=== PATIENT | male | born 1985 | race Caucasian/White ===

== ENCOUNTER 2020-01-11 09:37 | Emergency (ER) | payer MEDICAID ==
[~2020-01-11] VITALS: Ht 167.6 cm; Wt 79.5 kg
[2020-01-11 09:39] VITALS: Ht 167.6 cm; Wt 79.5 kg
[2020-01-11] MEDS ORDERED: PROZAC20 MG PO (09:42)
[2020-01-11 10:06] LABS: BASOPHILS 0.2 % (0-2); EOSINOPHILS 0 % (0-7); IMMATURE GRANULOCYTES 0.5 % (0-5); MCH 33.7 pg (26.0-34.0); MCHC 36.4 g/dL (31.0-37.0); MCV 92.6 fL (80.0-100.0); MEAN PLATELET VOLUME 8.8 fL (7.4-10.4); MONOCYTES 6.2 % (2-11); NEUTROPHILS 85.1 % (40-80); PLATELET COUNT 129 10x3/uL (130-400); RBC 4.75 10x6/uL (4.20-6.10); RDW 13.7 % (11.5-14.5); WBC 8.5 10x3/uL (4.8-10.8)
[2020-01-11] MEDS ORDERED: LIBRIUM25 MG PO (10:15)
[2020-01-11] MEDS ORDERED: PEPCID40 MG PO (10:15)
[2020-01-11 10:21] LABS: CALC OSMOLALITY 280 mosm/kg (275-300); CALCIUM 9.7 mg/dL (8.5-10.1); CARBON DIOXIDE 23.6 mmol/L (21.0-32.0); CHLORIDE - SERUM 97 mmol/L (98-107); CREATININE - SERUM 1.1 mg/dL (0.6-1.3); GLUCOSE 179 mg/dL (74-106); POTASSIUM - SERUM 3.3 mmol/L (3.5-5.1); SODIUM 140 mmol/L (136-145); UREA NITROGEN 7 mg/dL (7-18); eGFR NON AFRICAN AMERICAN 81 mL/min (90-120)
[2020-01-11 10:29] LABS: ALBUMIN 4.1 g/dL (3.4-5.0); ALKALINE PHOSPHATASE 161 U/L (30-120); ALT (SGPT) 312 U/L (10-68); BILIRUBIN - TOTAL 1.31 mg/dL (0.2-1.3); INR 0.98 (0.85-1.17); LIPASE 233 U/L (73-393); MAGNESIUM - SERUM 1.1 mg/dL (1.8-2.4); PROTEIN - SERUM 7.5 g/dL (6.4-8.2); PROTIME 12.9 SECONDS (11.6-15.0)
[2020-01-11 12:34] VITALS: BP 131/87
== END 2020-01-11 12:36 | disposition home or self-care (01) ==
LOC: D.ER 09:37
PROVIDERS: Emergency Medicine
DX: F10.231 Alcohol dependence with withdrawal delirium (principal); K70.30 Alcoholic cirrhosis of liver without ascites; F17.210 Nicotine dependence, cigarettes, uncomplicated

== ENCOUNTER 2020-02-19 23:43 | Emergency (ER) | payer MEDICAID ==
[~2020-02-19] VITALS: Ht 167.6 cm; Wt 86.4 kg
[~2020-02-19 23:43] MED LIST: LIBRIUM25 MG PO; PEPCID40 MG PO; PROZAC20 MG PO
[2020-02-19 23:50] VITALS: Ht 167.6 cm; Wt 86.4 kg
[2020-02-20 00:44] LABS: BILIRUBIN NEGATIVE (NEGATIVE); KETONE NEGATIVE (NEGATIVE); NITRITE NEGATIVE (NEGATIVE); UROBILINOGEN NORMAL mg/dL (< 2)
[2020-02-20 00:49] LABS: UDS - AMPHET NEGATIVE QUAL (NEGATIVE); UDS - BARB NEGATIVE QUAL (NEGATIVE); UDS - BENZO POSITIVE QUAL (NEGATIVE); UDS - COCAINE NEGATIVE QUAL (NEGATIVE); UDS - OPIATE NEGATIVE QUAL (NEGATIVE); UDS - PCP NEGATIVE QUAL (NEGATIVE); UDS - THC NEGATIVE QUAL (NEGATIVE)
[2020-02-20 00:50] LABS: BASOPHILS 0.3 % (0-2); EOSINOPHILS 1.4 % (0-7); HEMATOCRIT 39.2 % (42.0-54.0); IMMATURE GRANULOCYTES 0.2 % (0-5); LYMPHOCYTES 43.8 % (15-50); MCH 33.5 pg (26.0-34.0); MCHC 35.7 g/dL (31.0-37.0); MCV 93.8 fL (80.0-100.0); MEAN PLATELET VOLUME 9.4 fL (7.4-10.4); MONOCYTES 8.1 % (2-11); NEUTROPHILS 46.2 % (40-80); PLATELET COUNT 153 10x3/uL (130-400); RBC 4.18 10x6/uL (4.20-6.10); RDW 12.2 % (11.5-14.5); WBC 5.8 10x3/uL (4.8-10.8)
[2020-02-20 01:01] LABS: CALC OSMOLALITY 283 mosm/kg (275-300); CALCIUM 8.3 mg/dL (8.5-10.1); CARBON DIOXIDE 27.1 mmol/L (21.0-32.0); CHLORIDE - SERUM 108 mmol/L (98-107); CREATININE - SERUM 0.8 mg/dL (0.6-1.3); POTASSIUM - SERUM 3.4 mmol/L (3.5-5.1); SODIUM 144 mmol/L (136-145); UREA NITROGEN 4 mg/dL (7-18); eGFR NON AFRICAN AMERICAN > 90 mL/min (90-120)
[2020-02-20 01:02] LABS: GLUCOSE 94 mg/dL (74-106)
[2020-02-20 01:16] LABS: ALBUMIN 3.2 g/dL (3.4-5.0); ALKALINE PHOSPHATASE 104 U/L (30-120); ALT (SGPT) 81 U/L (10-68); BILIRUBIN - TOTAL 0.25 mg/dL (0.2-1.3); CKMB 0.4 U/L (0.0-3.6); CREATINE KINASE 119 UL (21-232); PROTEIN - SERUM 6.4 g/dL (6.4-8.2); TROPONIN-I < 0.017 ng/mL (0.000-0.060)
--- NOTE | 2020-02-20 13:51 | NUR ---
DR. BRUNO NOTIFIED AND REVIEWED PT'S BEHAVIOR AND ASSESSMENT RESULTS. PT IS A ZERO RISK PER DR. BRUNO. DR. BRUNO STATED TO GIVE RESOURCES TO PT AT TIME OF DISCHARGE. NO FURTHER ORDERS AT THIS TIME. RESOURCES REVIEWED WITH PT AND HE VERBALIZIED UNDERSTANDING.
== END 2020-02-20 14:21 | disposition home or self-care (01) ==
LOC: D.ER 23:43
PROVIDERS: Family Medicine
DX: F10.121 Alcohol abuse with intoxication delirium (principal); F13.10 Sedative, hypnotic or anxiolytic abuse, uncomplicated; Y90.8 Blood alcohol level of 240 mg/100 ml or more

== ENCOUNTER 2020-02-28 03:59 | Emergency (ER) | payer MEDICAID ==
[~2020-02-28] VITALS: Ht 167.6 cm; Wt 79.4 kg
[2020-02-28 04:03] VITALS: Ht 167.6 cm; Wt 79.4 kg
[2020-02-28 05:10] LABS: UDS - AMPHET NEGATIVE QUAL (NEGATIVE); UDS - BARB NEGATIVE QUAL (NEGATIVE); UDS - BENZO POSITIVE QUAL (NEGATIVE); UDS - COCAINE NEGATIVE QUAL (NEGATIVE); UDS - OPIATE NEGATIVE QUAL (NEGATIVE); UDS - PCP NEGATIVE QUAL (NEGATIVE); UDS - THC NEGATIVE QUAL (NEGATIVE)
[2020-02-28 05:14] LABS: BILIRUBIN NEGATIVE (NEGATIVE); KETONE NEGATIVE (NEGATIVE); NITRITE NEGATIVE (NEGATIVE); UROBILINOGEN NORMAL mg/dL (< 2)
[2020-02-28 05:15] LABS: BACTERIA FEW HPF (NONE SEEN); EPITHELIAL CELLS 0-5 /hpf (0-5); WHITE CELLS - URINE 0-5 HPF (0-1)
[2020-02-28 05:46] LABS: BASOPHILS 0.3 % (0-2); EOSINOPHILS 1.2 % (0-7); HEMATOCRIT 42.8 % (42.0-54.0); HEMOGLOBIN 15.2 g/dL (13.5-17.5); IMMATURE GRANULOCYTES 0.1 % (0-5); LYMPHOCYTES 21.7 % (15-50); MCH 33.3 pg (26.0-34.0); MCHC 35.5 g/dL (31.0-37.0); MCV 93.9 fL (80.0-100.0); MEAN PLATELET VOLUME 9.2 fL (7.4-10.4); NEUTROPHILS 67.7 % (40-80); PLATELET COUNT 140 10x3/uL (130-400); RBC 4.56 10x6/uL (4.20-6.10); WBC 6.9 10x3/uL (4.8-10.8)
[2020-02-28 05:58] LABS: CALC OSMOLALITY 277 mosm/kg (275-300); CALCIUM 8.3 mg/dL (8.5-10.1); CHLORIDE - SERUM 103 mmol/L (98-107); CREATININE - SERUM 0.9 mg/dL (0.6-1.3); GLUCOSE 112 mg/dL (74-106); POTASSIUM - SERUM 3.8 mmol/L (3.5-5.1); SODIUM 139 mmol/L (136-145); UREA NITROGEN 10 mg/dL (7-18); eGFR NON AFRICAN AMERICAN > 90 mL/min (90-120)
[2020-02-28 06:02] LABS: ALBUMIN 3.8 g/dL (3.4-5.0); ALKALINE PHOSPHATASE 131 U/L (30-120); ALT (SGPT) 171 U/L (10-68); BILIRUBIN - TOTAL 0.59 mg/dL (0.2-1.3); MAGNESIUM - SERUM 1.6 mg/dL (1.8-2.4); PROTEIN - SERUM 6.9 g/dL (6.4-8.2)
[2020-02-28 07:37] VITALS: BP 97/51
== END 2020-02-28 12:08 | disposition home or self-care (01) ==
LOC: D.ER 03:59
PROVIDERS: Family Medicine
DX: F10.129 Alcohol abuse with intoxication, unspecified (principal); Y90.8 Blood alcohol level of 240 mg/100 ml or more; R25.1 Tremor, unspecified